=== PATIENT | female | born 1980 | race Caucasian/White ===

== ENCOUNTER 2019-04-16 14:45 | Inpatient (IN) | payer OTHER ==
[2019-04-16] MEDS: LACTATED RINGER'S 1,000 ML IV (17:44)
[2019-04-16 17:48] LABS: ADD MAN DIFF? NO
[2019-04-16 17:50] LABS: BASOPHILS % 0.2 % (0.0-2.0); EOSINOPHILS % 0.3 % (0.0-7.0); HEMATOCRIT 33.4 % (37.0-47.0); HEMOGLOBIN 11.2 g/dl (12.0-16.0); LYMPHOCYTES # 1.2 10^3/ul (0.8-2.9); LYMPHOCYTES % 17.9 % (15.0-51.0); MEAN CORPUSCULAR HEMOGLOBIN 29.9 pg (29.0-33.0); MEAN CORPUSCULAR HGB CONC 33.5 g/dl (32.0-37.0); MEAN CORPUSCULAR VOLUME 89.1 fl (82.0-101.0); MEAN PLATELET VOLUME 11.7 fl (7.4-10.4); MONOCYTE # 0.5 10^3/ul (0.3-0.9); MONOCYTES % 7.1 % (0.0-11.0); NEUTROPHIL # 4.9 10^3/ul (1.6-7.5); NEUTROPHILS % 73.7 % (39.0-77.0); PLATELET COUNT 155 10^3/UL (140-415); RED BLOOD COUNT 3.75 10^6/ul (4.20-5.40); RED CELL DISTRIBUTION WIDTH 13.6 % (11.5-14.5)
[2019-04-16 17:50] LABS: WHITE BLOOD COUNT 6.6 10^3/ul (4.8-10.8)
[2019-04-16 17:54] LABS: INR 0.77; PROTIME 10.9 Sec (11.9-14.9); PT RATIO 0.9
[2019-04-16 17:55] LABS: PARTIAL THROMBOPLASTIN TIME 29.7 Sec (23.0-35.0)
[2019-04-16] MEDS ORDERED: BUTORPHANOL 2 MG INJ IV ×2 (18:00)
[2019-04-16] MEDS ORDERED: LIDOCAINE 1% (MPF) 30 ML INJ INJ (18:00)
[2019-04-16] MEDS ORDERED: METHYLERGONOVINE 0.2 MG INJ IM (18:00)
[2019-04-16] MEDS ORDERED: IBUPROFEN 600 MG TAB PO (18:00)
[2019-04-16] MEDS ORDERED: OXYCODONE/ASPIRIN (4.88/325) TAB PO (18:00)
[2019-04-16] MEDS ORDERED: OXYTOCIN 30 UNITS/LR 500 ML IV ×2 (18:00)
[2019-04-16] MEDS ORDERED: MISOPROSTOL 200 MCG TAB PR (18:00)
[2019-04-16] MEDS ORDERED: CARBOPROST 250 MCG INJ IM (18:00)
[2019-04-16] MEDS ORDERED: MISOPROSTOL 50 MCG CAPSULE VAG (18:00)
[2019-04-16 18:11] LABS: ADD UMIC NO; UR ASCORBIC ACID NEGATIVE (NEGATIVE); UR BILIRUBIN (Dip) NEGATIVE (NEGATIVE); UR BLOOD (Dip) NEGATIVE (NEGATIVE); UR CLARITY CLEAR (CLEAR); UR COLOR STRAW (YELLOW); UR GLUCOSE (Dip) NEGATIVE (NEGATIVE); UR KETONES (Dip) NEGATIVE (NEGATIVE); UR LEUKOCYTE ESTERASE (Dip) NEGATIVE Leu/ul (NEGATIVE); UR NITRITE (Dip) NEGATIVE (NEGATIVE); UR SPECIFIC GRAVITY (Dip) 1.009 (1.003-1.030); UR TOTAL PROTEIN (Dip) NEGATIVE (NEGATIVE); UR UROBILINOGEN (Dip) NEGATIVE (NEGATIVE)
[2019-04-16 18:22] LABS: ALANINE AMINOTRANSFERASE 18 IU/L (13-69); ALBUMIN 3.7 g/dl (3.3-4.9); ALKALINE PHOSPHATASE 153 IU/L (42-121); ANION GAP 8 (5-13); ASPARTATE AMINO TRANSFERASE 28 IU/L (15-46); BILIRUBIN,INDIRECT 0.4 mg/dl (0-1.1); BILIRUBIN,TOTAL 0.4 mg/dl (0.2-1.3); BLOOD UREA NITROGEN 11 mg/dl (7-20); CALCIUM 9.2 mg/dl (8.4-10.2); CARBON DIOXIDE 22 mmol/L (21-31); CHLORIDE 106 mmol/L (97-110); CREATININE 0.37 mg/dl (0.44-1.00); Estimated GFR > 60 mL/min (>60); GLUCOSE 79 mg/dl (70-220); POTASSIUM 4.6 mmol/L (3.5-5.1); SODIUM 136 mmol/L (135-144); TOTAL PROTEIN 7.4 g/dl (6.1-8.1); URIC ACID 4.2 mg/dl (3.1-7.9)
[2019-04-16 18:27] LABS: HEPATITIS B SURFACE ANTIGEN NEGATIVE (NEGATIVE)
[2019-04-16] MEDS: OXYTOCIN 30 UNITS/LR 500 ML IV (22:35)
[2019-04-17] MEDS: LACTATED RINGER'S 1,000 ML IV ×3 (00:41→07:03)
[2019-04-17] MEDS ORDERED: NALOXONE (0.4 MG/ML) INJ IV (02:00)
[2019-04-17] MEDS ORDERED: FENTAnyl 2MCG/ML-ROPIV 0.2% 100 ML (02:03)
[2019-04-17] MEDS ORDERED: LIDOCAINE 1.5%/EPI MPF (SDV) 30 ML VIAL (02:45)
[2019-04-17] MEDS ORDERED: ONDANSETRON 4 MG INJ (03:01)
[2019-04-17] MEDS: ONDANSETRON 4 MG INJ IV (03:35)
[2019-04-17] MEDS ORDERED: MINERAL OIL LIGHT 10 ML VIAL TOP (04:00)
[2019-04-17] MEDS: FENTAnyl 2MCG/ML-ROPIV 0.2% 100 ML BAG EPI (04:04)
[2019-04-17] MEDS: OXYTOCIN 30 UNITS/LR 500 ML IV (08:58)
[2019-04-17] MEDS ORDERED: OXYTOCIN 30 UNITS/LR 500 ML IV (10:30)
[2019-04-17] MEDS ORDERED: METHYLERGONOVINE 0.2 MG INJ IM (10:30)
[2019-04-17] MEDS ORDERED: LANOLIN HPA 1 PKT TOP (10:30)
[2019-04-17] MEDS ORDERED: ZOLPIDEM 5 MG TAB PO (10:30)
[2019-04-17] MEDS ORDERED: MISOPROSTOL 200 MCG TAB PR (10:30)
[2019-04-17] MEDS ORDERED: CARBOPROST 250 MCG INJ IM (10:30)
[2019-04-17] MEDS: OXYCODONE/ASPIRIN (4.88/325) TAB PO ×3 (10:34→21:33)
[2019-04-17] MEDS: WITCH HAZEL/GLYCERIN PAD PR (10:35)
[2019-04-17] MEDS: BENZOCAINE 20% 56 ML SPRAY TOP (10:35)
[2019-04-17] MEDS: IBUPROFEN 600 MG TAB PO ×2 (12:16→17:44)
[2019-04-17 15:42] LABS: RAPID PLASMA REAGIN NONREACTIVE (NR)
[2019-04-17] MEDS: SENNA/DOCUSATE NA (8.6MG/50MG) TAB PO (21:00)
[2019-04-18] MEDS: IBUPROFEN 600 MG TAB PO ×5 (00:15→23:30)
[2019-04-18] MEDS: OXYCODONE/ASPIRIN (4.88/325) TAB PO ×3 (03:30→18:27)
[2019-04-18 08:30] LABS: ADD MAN DIFF? NO
[2019-04-18 08:35] LABS: BASOPHILS % 0.2 % (0.0-2.0); EOSINOPHILS # 0.1 10^3/ul (0.0-0.5); EOSINOPHILS % 1.2 % (0.0-7.0); HEMATOCRIT 26.5 % (37.0-47.0); HEMOGLOBIN 8.5 g/dl (12.0-16.0); LYMPHOCYTES # 1.6 10^3/ul (0.8-2.9); LYMPHOCYTES % 26.8 % (15.0-51.0); MEAN CORPUSCULAR HEMOGLOBIN 29.6 pg (29.0-33.0); MEAN CORPUSCULAR HGB CONC 32.1 g/dl (32.0-37.0); MEAN CORPUSCULAR VOLUME 92.3 fl (82.0-101.0); MEAN PLATELET VOLUME 11.2 fl (7.4-10.4); MONOCYTE # 0.4 10^3/ul (0.3-0.9); MONOCYTES % 7.3 % (0.0-11.0); NEUTROPHIL # 3.9 10^3/ul (1.6-7.5); PLATELET COUNT 115 10^3/UL (140-415); RED BLOOD COUNT 2.87 10^6/ul (4.20-5.40); RED CELL DISTRIBUTION WIDTH 13.5 % (11.5-14.5)
[2019-04-18] MEDS: SENNA/DOCUSATE NA (8.6MG/50MG) TAB PO ×2 (09:01→21:24)
[2019-04-19] MEDS: OXYCODONE/ASPIRIN (4.88/325) TAB PO ×5 (00:18→19:32)
[2019-04-19] MEDS: IBUPROFEN 600 MG TAB PO ×3 (06:00→15:53)
[2019-04-19] MEDS: SENNA/DOCUSATE NA (8.6MG/50MG) TAB PO (08:40)
[2019-04-19] MEDS: DIPHTH/TET/ACEL PERTUSS (ADULT) 0.5 ML VIAL IM* (12:50)
== END 2019-04-19 20:15 | disposition home or self-care (01) | DRG 807 ==
LOC: PP1 04-17 09:52 → L-D 14:45
PROVIDERS: Obstetrics & Gynecology
PROC: 10E0XZZ Delivery of Products of Conception, External Approach (ICD-10-PCS; principal; 2019-04-17)
DX: O36.63X0 Maternal care for excessive fetal growth, third trimester, not applicable or unspecified (principal); Z37.0 Single live birth; O69.1XX0 Labor and delivery complicated by cord around neck, with compression, not applicable or unspecified; Z3A.39 39 weeks gestation of pregnancy; Z23 Encounter for immunization
CPT/HCPCS: 62322; 76815; 80053; 81003; 84560; 85025; 85610; 85730; 86592; 86850; 86900; 86901; 87086; 87340; 90715; 99464